=== PATIENT | male | born 1960 | race Caucasian/White ===

== ENCOUNTER 2021-05-20 13:26 | Outpatient (CLI) | payer MEDICAID, SELFPAY ==
--- NOTE | 2021-05-20 13:30 | MRR_ITS ---
PROCEDURE INFORMATION: Exam: MR Left Upper Extremity Joint Without Contrast; Elbow Exam date and time: 05/20/2021 1:30 PM Age: 60 years old Clinical indication: Trauma with swelling. A month ago he was lifting underneath a car when he was working with his arm extended across flexed elbows. Patient felt a sharp pain in his right biceps. Since that time he has noticed a dorsal distal bump over his brachium. He describes continued bicipital pain. He describes weakness with flexion and supination. TECHNIQUE: Imaging protocol: MR of the Left upper extremity without contrast. Exam focused on the elbow. COMPARISON: No relevant prior studies available. FINDINGS: Bones and cartilage: No acute fracture is seen. Joint spaces: Small elbow joint effusion. Ulnar (medial) collateral ligament: Possible partial thickness tearing of the proximal ulnar collateral ligament. Radial collateral ligament of the elbow: There is partial-thickness tearing of the proximal radial collateral ligament. The lateral ulnar collateral ligament is overall intact. Annular ligament of the radius: The annular ligament is not well assessed. Tendon of the biceps brachii: The biceps tendon is intact. Tendon of the brachialis: There is mild edema/fluid adjacent to the distal brachialis tendon which may reflect acute tendinous injury. Small elbow joint effusion Triceps tendon: The triceps tendon is intact. Common flexor tendon: There is partial-thickness tearing of the proximal common flexor tendon Common extensor tendon: There is partial-thickness tearing of the proximal common extensor tendon. Lymph nodes: Small epitrochlear lymph node noted. Other findings: The contents of the cubital tunnel are grossly unremarkable. MR/MR elbow LT wo con* [id number] IMPRESSION: 1. The biceps tendon appears intact to its radial insertion. 2. There is mild edema/fluid adjacent to the distal brachialis tendon which may reflect acute tendinous injury. 3. Partial-thickness tearing of the proximal common extensor and flexor tendons. 4. Possible partial thickness tearing of the proximal ulnar collateral ligament. 5. Partial-thickness tearing of the proximal radial collateral ligament. 6. Small elbow joint effusion. 7. No acute fracture. Radiation Dose CTDIVOL = (mGy): DLP = (mGy-cm)
== END 2021-05-20 13:27 | disposition home or self-care (01) ==
LOC: RADSHAW 13:28
PROVIDERS: Visit Provider Orthopaedic Surgery
DX: S59.902A Unspecified injury of left elbow, initial encounter (principal); M25.422 Effusion, left elbow; R60.0 Localized edema; S53.432A Radial collateral ligament sprain of left elbow, initial encounter; S56.512A Strain of other extensor muscle, fascia and tendon at forearm level, left arm, initial encounter; X58.XXXA Exposure to other specified factors, initial encounter
CPT/HCPCS: 73221

== ENCOUNTER 2022-10-05 09:30 | Outpatient (CLI) | payer MEDICAID, SELFPAY ==
[2022-10-05 10:22] LABS: Albumin Level 3.2 g/dL (3.5-5.2); Anion Gap 13.2 (5-19); Blood Urea Nitrogen 14 mg/dL (8-23); Calcium 8.2 mg/dL (8.5-10.5); Carbon Dioxide 27 mmol/L (22-29); Chloride 103 mmol/L (98-107); Glomerular Filtration Rate 61.8 mL/min (90-130); Glucose 228 mg/dL (65-115); Phosphorus 2.2 mg/dL (2.5-4.5); Potassium 3.2 mmol/L (3.5-5.1); Sodium 140 mmol/L (136-145)
== END 2022-10-05 09:31 | disposition home or self-care (01) ==
PROVIDERS: PCP Internal Medicine Nephrology; Visit Provider Internal Medicine Nephrology
DX: N17.9 Acute kidney failure, unspecified (principal)
CPT/HCPCS: 80069

== ENCOUNTER 2022-10-10 15:39 | Outpatient (CLI) | payer MEDICAID, SELFPAY ==
[2022-10-10 16:31] LABS: Albumin Level 3.6 g/dL (3.5-5.2); Anion Gap 13.9 (5-19); Blood Urea Nitrogen 11 mg/dL (8-23); Calcium 8.3 mg/dL (8.5-10.5); Carbon Dioxide 28 mmol/L (22-29); Chloride 101 mmol/L (98-107); Glomerular Filtration Rate 86.1 mL/min (90-130); Glucose 231 mg/dL (65-115); Phosphorus 2.3 mg/dL (2.5-4.5); Sodium 140 mmol/L (136-145)
[2022-10-10 16:42] LABS: Potassium 2.9 mmol/L (3.5-5.1)
== END 2022-10-10 15:40 | disposition home or self-care (01) ==
LOC: LAB 15:42
PROVIDERS: PCP Internal Medicine Nephrology; Visit Provider Internal Medicine Nephrology
DX: N17.9 Acute kidney failure, unspecified (principal)
CPT/HCPCS: 80069